=== PATIENT | female | born 1960 | race Caucasian/White ===

== ENCOUNTER 2024-03-15 09:12 | Outpatient (CLI) | payer BC, SELFPAY ==
--- NOTE | ~2024-03-15 | NM_ITS ---
EXAMINATION: NM joel stress w perfusion DATE: 03/15/2024 12:24 INDICATION: Metabolic syndrome and insulin resistance TECHNIQUE: Rest images were obtained following intravenous administration of 9.8 mCi Tc99m tetrofosmi n (Myoview). The patient was infused intravenously with Lexiscan (Regadenoson). Then, 81.2 mCi Tc99m tetrofosmin (Myoview) was administered intravenously, and stress images were obtained initially in th e supine position with repeat post stress imaging obtained in the prone position. Data was reconstruc nasreen into short axis and horizontal and vertical long axis SPECT images. Gated SPECT images were also obtained. COMPARISON: None. FINDINGS: Nonreversible mild perfusion defect consistent with infarct involving the apical anterior, mid anterior and basilar anterior segments. No nonreversible perfusion defects to suggest ischemia. T here is normal left ventricular chamber size, wall motion and ejection fraction. Left ventricular ej ection fraction measures >70%. IMPRESSION: 1. Nonreversible mild perfusion defect consistent with left anterior descending coronary artery vascu lar distribution infarct involving the apical anterior, mid anterior and basilar anterior segments. 2. Left ventricular ejection fraction measuring >70%. Reviewed, dictated and finalized at location B. TS BETTING MANAGER IMPRESSION: 1. Nonreversible mild perfusion defect consistent with left anterior descending coronary artery vascular distribution infarct involving the apical anterior, m id anterior and basilar anterior segments. 2. Left ventricular ejection fraction measuring >70%.
--- NOTE | 2024-03-15 10:24 | EST_ITS ---
Patient Info Name: Jordan Muñoz Age: 64 years : 1960 Gender: Female Ht: 64 in Wt: 205 lbs BSA: 2.09 m2 HR: 53 bpm BP: 115 / 63 mmHg Exam Date: 03/15/2024 10:41 AM Exam Location: Echo Lab Patient Status: Outpatient Admit Date: 03/15/2024 Staff Ordering Physician: Param Mcclellan MD Attending Provider: Param Mcclellan MD Exercise Technologist: Arlet Florez [facility] Exercise Physician: Guido Garrett DO Exam Type: CA stress joel w NM Study Info A regadenoson stress test was performed. Summary 1. 1. Negative lexiscan stress test for ischemic ST changes by ECG criteria. 2. 2. Stable hemodynamics throughout the test. 3. 3. Nuclear scan to follow and will be reported separately. Please correlate with it. 4. 4. Patient informed of the above results. Protocol: Lexiscan Stress ECG Details Stage: REST Duration (min): 4 min : 38 sec HR (bpm): 56 SBP (mmHg): 115 DBP (mmHg): 63 Stage: REST Duration (min): 16 min : 41 sec HR (bpm): 58 SBP (mmHg): 115 DBP (mmHg): 63 Stage: STAGE 1 Duration (min): 0 min : 59 sec HR (bpm): 67 SBP (mmHg): 124 DBP (mmHg): 80 Stage: RECOVERY Duration (min): 1 min : 0 sec HR (bpm): 74 SBP (mmHg): 124 DBP (mmHg): 80 Stage: RECOVERY Duration (min): 2 min : 0 sec HR (bpm): 71 SBP (mmHg): 124 DBP (mmHg): 80 Stage: RECOVERY Duration (min): 3 min : 0 sec HR (bpm): 66 SBP (mmHg): 133 DBP (mmHg): 76 Stage: RECOVERY Duration (min): 3 min : 14 sec HR (bpm): 68 SBP (mmHg): 133 DBP (mmHg): 76 Rest HR: 58 bpm Peak HR: 76 bpm Rest Sys BP: 115 mmHg Peak Sys BP: 133 mmHg Max Pred HR: 157 bpm % Max Pred HR: 48 % Target HR: 133 bpm Max RPP: 10,108 bpm*mmHg Termination Reason: Completed protocol Cardiac Symptoms: Shortness of breath, Baseline chest pain Total Time: 1 min : 0 sec Rest Aguilera BP: 63 mmHg Peak Aguilera BP: 76 mmHg Total Dose: 0.4 mg Resting ECG Sinus rhythm. Stress ECG No ST changes. Arrhythmias None. Report Signatures
== END 2024-03-15 09:13 | disposition home or self-care (01) ==
PROVIDERS: PCP Family Medicine; Visit Provider Family Medicine
DX: R94.39 Abnormal result of other cardiovascular function study (principal); E88.810 Metabolic syndrome; E88.819 Insulin resistance, unspecified; R07.89 Other chest pain
CPT/HCPCS: 78452; 93017; A9502; J2785

== ENCOUNTER 2024-07-28 08:58 | Outpatient (CLI) | payer BC, SELFPAY ==
--- NOTE | ~2024-07-28 | MM_ITS ---
EXAMINATION: MM screening katelyn BI w lizette HISTORY: Screening TECHNIQUE: Craniocaudal and mediolateral oblique 3-D tomosynthesis images were obtained and synthetic 2-D images were generated. CAD analysis was submitted and interpreted. COMPARISON: No prior mammogram is available for comparison at this institution. BREAST PARENCHYMAL COMPOSITION: Not dense: There are scattered areas of fibroglandular density. FINDINGS: There are asymmetries in the periareolar location of the right breast. There are no suspici ous masses, calcifications or architectural distortion in the left breast. IMPRESSION: 1. Right breast asymmetries. 2. Additional mammographic views and possible breast ultrasound are recommended. BI-RADS Category 0: Incomplete: Needs additional imaging evaluation. Reviewed, dictated and finalized at location A. IMPRESSION: 1. Right breast asymmetries. 2. Additional mammographic views and possible breast ultrasound are recommended . BI-RADS Category 0: Incomplete: Needs additional imaging evaluation.
--- OUTSIDE RECORDS SUMMARY | 2024-07-28 09:07 | XMS_ITS | Referral Summary ---
Author Organization [facility] Address [facility] [place] [address] Care Team Providers Care Driver Service Technician Name Role Phone Param Mcclellan MD Primary Care Provider [phone] [phone] Allergies No known active allergies Medications levothyroxine sodium (TIROSINT) 125 mcg capsuleIndicati ons:hypothyroid ism Take 125 mcg by mouth daily before breakfast. Active atenolol (TENORMIN) 25 mg tabletIndicatio ns:hypertension Take 25 mg by mouth daily before breakfast. Active celecoxib (CeleBREX) 200 mg capsuleIndicati ons:Osteoarthri tis,Postoperati ve Acute Pain TAKE 2 PILLS WITH BREAKFAST THE DAY BEFORE SX. TAKE 1 PILL BID AFTER DISCHARGE. 10 capsule 8 Active calcium carbonate (CALCIUM 600) 1,500 mg (600 mg of elemental calcium) tabletIndicatio ns:Hypocalcemia Prevention,Oste oporosis Take 1 tablet (1,500 mg total) by mouth daily. 30 tablet 3 9 Active ergocalciferol (VITAMIN D) 50,000 unit capsuleIndicati ons:Vitamin D Deficiency Take 1 capsule (50,000 Units total) by mouth once a week. TAKE 1 CAPSULE ONCE A WEEK FOR 12 WEEKS, THEN FOLLOW UP WITH YOUR PCP. 12 capsule 9 Active HYDROcodone-nayana taminophen (NORCO) 5-325 mg per tabletIndicatio ns:Pain Take 1-2 tablets by mouth every 4 (four) hours as needed for pain. 70 tablet 9 Active aspirin 325 mg tabletIndicatio ns:prevention of thrombosis Take 1 tablet (325 mg total) by mouth 2 (two) times a day. 84 tablet 9 Active senna-docusate (PERICOLACE) 8.6-50 mgIndications:c onstipation Take 2 tablets by mouth 2 (two) times a day. 80 tablet 2 9 Active HYDROcodone-nayana taminophen (NORCO) 5-325 mg per tabletIndicatio ns:Pain Take 1-2 tablets by mouth every 4 (four) hours as needed for pain. 70 tablet 9 Active cyclobenzaprine (FLEXERIL) 10 mg tablet Take 1 tablet (10 mg total) by mouth every 8 (eight) hours as needed for muscle spasms. 20 tablet 9 Active traMADol (ULTRAM) 50 mg tablet Take 1 tablet (50 mg total) by mouth every 6 (six) hours as needed for pain for up to 40 doses. 40 tablet 9 Active famotidine (PEPCID) 20 mg tablet Take 1 tablet (20 mg total) by mouth 2 (two) times a day 14 tablet 4 02/24/20 25 Active Active Problems Problem Noted Date Diagnosed Date HTN (hypertension) 05/17/2018 Hypothyroidism 05/17/2018 Risk factors for obstructive sleep apnea 019 Vitamin D deficiency 05/17/2018 Primary osteoarthritis of right hip 03/21/2018 Overview (03/21/2018): Added automatically from request for surgery [id number] Dense breast 04/17/2015 Hyperlipidemia 09/08/2010 Overview (08/05/2017): Description: Hyperlipidemia Social History Tobacco Use Types Packs/Day Years Used Date Smoking Tobacco: Never Smokeless Tobacco: Never Alcohol Use Standard Drinks/Week Comments No 0 (1 standard drink = 0.6 oz pur e alcohol) Personal Safety Answer Date Recorded Have you ever been in or are you currently in a harmful physical or emotional relationship or is someone making you feel afraid or unsafe? Denies 02/24/2024 Comments No Sex and Gender Information Value Date Recorded Sex Assigned at Not on file Legal Sex Female 1:13 AM ESCALATOR ATTENDANT Gender Identity Not on file Sexual Orientation Not on file Last Filed Vital Signs Vital Sign Reading Time Taken Comments Blood Pressure 145/71 02/24/2024 8:30 AM CDT Pulse 57 02/24/2024 8:30 AM CDT Temperature 36.4 C (97.6 F) 02/24/2024 4:20 AM CDT Respiratory Rate 18 02/24/2024 8:30 AM CDT Oxygen Saturation 96% 02/24/2024 8:30 AM CDT Inhaled Oxygen Concentration - - Weight 95.3 kg (210 lb) 02/24/2024 4:22 AM CDT Height 165.1 cm (5' 5 ) 05/24/2018 10:45 AM ESCALATOR ATTENDANT Body Mass Index 34.95 05/24/2018 10:45 AM ESCALATOR ATTENDANT Plan of Treatment Not on file Medical Devices Implanted Type Area Cold Roll Catcher Device Identifier Shelf Expiration Date Model / Serial / Lot [employer] [id number] Procotyl Prime 50mm Shell Acetabular Sterile - S0 - [id number] Implanted:Qty: 1 on 05/24/2018 by Jose Antonio Smith MD at [facility] Right: Hip [employer] 05/06/2026 [id number] / 0 / [id number] Prime A Class Liner Xlpe Implanted:Qty: 1 on 05/24/2018 by Jose Antonio Smith MD at [facility] Right: Hip [employer] 04/11/2026 [id number] / 0 / [id number] Description:NOT FOUND IN CAT ALOG SEARCH [employer] [id number] Dynasty Lineage 6.5mm 30mm Acetabular Screw Bone Biofoam - S0 - [id number] Implanted:Qty: 1 on 05/24/2018 by Jose Antonio Smith MD at [facility] Right: Hip [employer] 09/25/2025 [id number] / 0 / [id number] [employer] [id number] Dynasty Lineage 6.5mm 40mm Acetabular Screw Bone Biofoam - S0 - [id number] Implanted:Qty: 1 on 05/24/2018 by Jose Antonio Smith MD at [facility] Right: Hip [employer] 06/23/2022 [id number] / 0 / [id number] [employer] [id number] Profemur Tl Classic Short Varus Neck Hip 8d 3 Stem Femoral - S0 - [id number] Implanted:Qty: 1 on 05/24/2018 by Jose Antonio Smith MD at [facility] Right: Hip [employer] 02/11/2025 [id number] / 0 / [id number] Description:NOT FOUND IN CAT ALOG SEARCH [employer] [id number] Procotyl 36mm 12/14 Large Head Femoral Biolox Delta Sterile - S0 - [id number] Implanted:Qty: 1 on 05/24/2018 by Jose Antonio Smith MD at [facility] Right: Hip [employer] 12/18/2025 [id number] / 0 / [id number] Insurance Aircrm ACCESS CHOICE Aircrm ACCESS CHOICE ANTHEM ACCESS CHOICE Advance Directives For more information, please contact: [phone] * Full Code (Latest Code Status on File) Date Activated Date Inactivated Comments 05/24/2018 5:10 PM 05/25/2018 3:08 PM Care Teams Driver Service Technician Relationship Specialty Start Date End Date Param Mcclellan MD PCP - General Family Medicine 11/23/17
--- OUTSIDE RECORDS SUMMARY | 2024-07-28 09:07 | XMS_ITS | Encounter Summary ---
Author Organization [facility] Healthcare Address [address] [place] [address] Care Team Providers Care Salesperson Jewelry Name Role Phone Param Mcclellan MD Primary Care Provider [phone] Encounter Details Date Type Department Care Team (Late st Contact Info) Description 05/25/[address] [facility] Case Management [id number] [place] [address] Pauline Fritz RN Social History Tobacco Use Types Packs/Day Years Used Date Smoking Tobacco: Never Smokeless Tobacco: Never Alcohol Use Standard Drinks/Week Comments No 0 (1 standard drink = 0.6 oz pur e alcohol) Comments No Sex and Gender Information Value Date Recorded Sex Assigned at Not on file Legal Sex Female 1:13 AM FERMENTATION SCIENTIST Gender Identity Not on file Sexual Orientation Not on file documented as of this encounter Plan of Treatment Not on file documented as of this encounter Visit Diagnoses Not on filedocumented in this encounter Care Teams Salesperson Jewelry Relationship Specialty Start Date End Date Param Mcclellan MD PCP - General Family Medicine 11/23/17 documented as of this encounter
--- OUTSIDE RECORDS SUMMARY | 2024-07-28 09:07 | XMS_ITS | Encounter Summary ---
Author Organization [facility] Address [address] [place] [address] Care Team Providers Care Repairer Finished Metal Name Role Phone Param Mcclellan MD Primary Care Provider [phone]- [phone] Encounter Details Date Type Department Care Team (Latest Contact Info) Description 12/27/2007 Outpatient Historical [facility] Angus Melgar MD [address] [address] Unspecified Hypothyroidism Social History Tobacco Use Types Packs/Day Years Used Date Smoking Tobacco: Never Assessed Comments Unknown Sex and Gender Information Value Date Recorded Sex Assigned at Not on file Legal Sex Female 5:29 AM FINANCING ANALYST Gender Identity Not on file Sexual Orientation Not on file documented as of this encounter Plan of Treatment Not on file documented as of this encounter Procedures Procedure Name Priority Date/Time Associated Diagnosis Comments T3 FREE Routine 12/27/2007 2:40 PM CDT TSH Routine 12/27/2007 2:40 PM CDT T4 FREE Routine 12/27/2007 2:40 PM CDT documented in this encounter Results * T3 FREE (12/27/2007 2:40 PM CDT) T3 FREE 3.0 2.5 - 4.4 pg/mL [facility] Blood specimen (specimen) 12/27/2007 2:40 PM CDT 12/27/2007 3:03 PM CDT us Amberly Christina MD CHEMISTRY ORDERABLES Fi nal Result Performing Organization Address [facility] Phone Number INTERFACE SYSTEM Refer to clinic/hospital department [facility] CLIA# [id number] [address] [place] [address] * TSH (12/27/2007 2:40 PM CDT) TSH 2.07 0.27 - 4.20 uU/mL [facility] Blood specimen (specimen) 12/27/2007 2:40 PM CDT 12/27/2007 3:03 PM CDT us Amberly Christina MD CHEMISTRY ORDERABLES Fi nal Result Performing Organization Address [facility] Phone Number INTERFACE SYSTEM Refer to clinic/hospital department [facility] CLIA# [id number] [address] [place] [address] * T4 FREE (12/27/2007 2:40 PM CDT) T4 FREE 1.2 0.9 - 1.7 ng/dL [facility] Blood specimen (specimen) 12/27/2007 2:40 PM CDT 12/27/2007 3:03 PM CDT us Amberly Christina MD CHEMISTRY ORDERABLES Fi nal Result Performing Organization Address [facility] Phone Number INTERFACE SYSTEM Refer to clinic/hospital department [facility] CLIA# [id number] [address] [place] [address] documented in this encounter Visit Diagnoses Diagnosis Unspecified hypothyroidism documented in this encounter Care Teams Repairer Finished Metal Relationship Specialty Start Date End Date Param Mcclellan MD PCP - General Family Practice 03/10/12 documented as of this encounter
--- OUTSIDE RECORDS SUMMARY | 2024-07-28 09:07 | XMS_ITS | Clinical Summary ---
Author Organization [facility] Address [address] [place] [address] Phone Care Team Providers Care Retail Property Manager Name Role Phone Param Mcclellan MD Primary Care Provider [phone]- [phone] Allergies No known active allergies Medications ATENOLOL ORAL Take 1 Tab by mouth daily. Active LEVOTHYROXINE SODIUM (LEVOTHYROXINE ORAL) Take by mouth. Activ e PRAVASTATIN SODIUM (PRAVASTATIN ORAL) Take 1 Tab by mouth. Every other day Active ESOMEPRAZOLE MAGNESIUM (NEXIUM ORAL) Take 1 Tab by mouth daily. Active MULTIVITAMINS WITH FLUORIDE (MULTI-VITAMIN ORAL) Take by mouth. Activ e Naproxen-Esome prazole Mag (VIMOVO) 500-20 mg Tab,IR & Delay Rel,Multiphasi c Take by mouth. Activ e clobetasol (TEMOVATE) 0.05 % Ointment Apply to affected area see administration instructions. apply to perineum per lichen sclerosis protocol 30 Gram 1 4 Active Active Problems Problem Noted Date Diagnosed Date Dense breast 04/17/2015 Family History Medical History Relation Name Comments Cancer Father Bone, Prostate Breast Cancer Maternal Grandmother Heart Attack Mother Healthy Son 1 Healthy Son 2 Relation Name Status Comments Father Maternal Grandmother Mother Son 1 Alive Son 2 Alive Social History Tobacco Use Types Packs/Day Years Used Date Smoking Tobacco: Never Smokeless Tobacco: Never Alcohol Use Standard Drinks/Week Comments Yes 0 (1 standard drink = 0.6 oz pur e alcohol) Occ holidays Comments No Sex and Gender Information Value Date Recorded Sex Assigned at Not on file Legal Sex Female 5:29 AM OB/GYN Gender Identity Not on file Sexual Orientation Not on file Occupation Industry Job Start Date Job End Date Not on file Not on file Not on file Not on file Last Filed Vital Signs Vital Sign Reading Time Taken Comments Blood Pressure 118/74 04/02/2014 11:27 AM OB/GYN Pulse - - Temperature - - Respiratory Rate - - Oxygen Saturation - - Inhaled Oxygen Concentration - - Weight 95.3 kg (210 lb) 04/02/2014 11:27 AM OB/GYN Height 162.6 cm (5' 4 ) 04/02/2014 11:27 AM OB/GYN Body Mass Index 36.05 04/02/2014 11:27 AM OB/GYN Plan of Treatment Health Maintenance Due Date Last Done Comments DTAP/TDAP/TD VACCINES (1 - Tdap) 1980 COLORECTAL SCREENING 2006 FIT-DNA Q 3 years 2006 Flex Sig/CT Colonography Q 5 years 2006 ZOSTER VACCINE (1 of 2) 2011 Colorectal Cancer Screening 03/11/2013 FIT/FOBT Q 1 year 03/11/2013 03/11/2012 CERVICAL CANCER SCREENING 04/02/2015 PAP SMEAR 04/02/2015 04/02/2014, 03/10/2012 PAP SMEAR 04/02/2015 04/02/2014, 03/10/2012 BREAST CANCER SCREENING 04/16/2016 04/16/20 15, 02/07/2014, 07/15/2012, Additional history exists HPV/Cotest (21-29) 04/02/2019 04/02/2014 HPV/Cotest (30-65) 04/02/2019 04/02/2014 INFLUENZA VACCINE (#1) 2023 RSV VACCINE (60+ or ) (1 - 1-dose 75+ series) 2036 PNEUMOCOCCAL VACCINE 0-49 YEARS Aged Out No longer eligible based on patient's age to complete this topic Procedures Procedure Name Priority Date/Time Associated Diagnosis Comments MAMMO SCREEN BILAT W OR WO CAD Routine 04/16/2015 CERV/VAG CYTO SCREEN PAP RLFX HPV Routine 04/02/2014 4:10 PM OB/GYN Routine gynecological examination Screening for malignant neoplasm of the cervix POC OCCULT BLOOD 1 CARD Routine 03/11/2012 8:45 AM OB/GYN Screening for malignant neoplasm of the rectum from Last 3 Months or Most Recently Relevant to Health Maintenance Results * MAMMO DIGITAL SCREEN BILAT (04/16/2015) Anatomical Region Laterality Modality Breast Bilateral Other Erica Jiménez MD MAMMO ORDERABLES Edited Resu lt - Final * CERV/VAG CYTOPATH, THIN PREP IMAGR RFLX HPV (CP) (04/02/2014 4:10 PM OB/GYN) PAP INTERP Negative for intraepithelial lesion or malignancy. [facility] [employer] Comment: Performed by [facility], [email or web address] [address] [employer] Pap Comment This Pap test has been evaluated with computer assisted technology. [facility] [employer] ADEQUACY: Satisfactory for evaluation. Endocervical/trans formation zone component present. [facility] CLINICAL INFORMATION Information not provided [facility] SOURCE Endoc[employer]ix [facility] PREV PAP: INFORMATION NOT PROVIDED [facility] [employer] CYTOTECHNOLOGI ST: MVB, CT(ASCP) [facility] SERVICES [facility] MENSTRUAL PERIOD INFORMATION NOT PROVIDED [facility] PREV BX: INFORMATION NOT PROVIDED [facility] Endocervical 04/02/2014 4:10 PM OB/GYN 04/02/2014 10:00 PM OB/GYN Comment:ENDOCERVICAL Narrative [facility] - 04/08/2014 4:01 PM OB/GYN ecc Erica Jiménez MD PATHOLOGY/CYTOLOGY ORDERABLE S Final Result [facility] [employer] CLIA# [id number] [facility] [place] [address] * POC OCCULT BLOOD 1 CARD (03/11/2012 8:45 AM OB/GYN) OCCULT BLOOD #1 Negative Negative [facility] Stool specimen (specimen) Erica Jiménez MD POINT OF CARE TESTING Final Result [facility] from Last 3 Months or Most Recently Relevant to Health Maintenance Insurance BCBS BLUE ACCESS/TRUE BLUE PPO Care Teams Retail Property Manager Relationship Specialty Start Date End Date Param Mcclellan MD PCP - General Family Practice 03/10/12
--- OUTSIDE RECORDS SUMMARY | 2024-07-28 09:07 | XMS_ITS | Clinical Summary ---
Author Organization [facility] Address [address] [place] [address] Care Team Providers Care Bus Aide Name Role Phone Param Mcclellan MD Primary Care Provider +1- [phone] Family History Medical History Relation Comments Breast Cancer Maternal Grandmother Relation Status Comments Maternal Grandmother Social History Tobacco Use Types Packs/Day Years Used Date Smoking Tobacco: Never Assessed Comments Unknown Sex and Gender Information Value Date Recorded Sex Assigned at Not on file Legal Sex Female 4:16 PM CDT Gender Identity Not on file Sexual Orientation Not on file Last Filed Vital Signs Vital Sign Reading Time Taken Comments Blood Pressure 130/84 02/27/2013 4:42 PM LEATHER CUTTER Pulse 68 06/01/2012 1:16 PM LEATHER CUTTER Temperature - - Respiratory Rate - - Oxygen Saturation - - Inhaled Oxygen Concentration - - Weight 89.8 kg (198 lb) 02/27/2013 4:42 PM LEATHER CUTTER Height 163.8 cm (5' 4.5 ) 02/27/2013 4:42 PM LEATHER CUTTER Body Mass Index 33.46 02/27/2013 4:42 PM LEATHER CUTTER Plan of Treatment Health Maintenance Due Date Last Done Comments Cervical Cancer Screening Pap Smear (Age 30 to 64) Every 3 Years 1961 Colorectal Cancer Screening Colonoscopy (10 Years) 1961 Annual Physical 1964 Hepatitis C 1979 DTaP, Tdap and Td Vaccines (1 - Tdap) 1980 Cervical Cancer Screening Pap with HPV Testing (Age 30 to 64) Every 5 Years 1991 Cervical Cancer Screening with HPV 1991 Zoster Vaccines (1 of 2) 2011 COVID-19 Vaccine (3 - 2024-25 season) 2023 08/06/2020, 07/09/2020 Influenza Adult (#1) 2024 Mammogram Screening 2024 2022, 01/24/2021, 04/14/2019, Additional history exists RSV Immunization or 60+ Years (1 - 1-dose 75+ series) 2036 Meningococcal B Vaccine Aged Out No l onger eligible based on patient's age to complete this topic Meningococcal Vaccine Aged Out No cheri giancarlo eligible based on patient's age to complete this topic Pneumococcal Vaccine: Pediatrics (0 to 5 Years) and At-Risk Patients (6 to 64 Years) Aged Out No longer eligible based on patient's age to complete this topic RSV Immunizations Under 20 Months Aged Out No longer eligible based on patient's age to complete this topic Procedures Procedure Name Priority Date/Time Associated Diagnosis Comments MG SCREENING W TEODORO MATEO DIGI Routine 2022 11:31 AM LEATHER CUTTER Encounter for screening mammogram for malignant neoplasm of breast from Last 3 Months or Most Recently Relevant to Health Maintenance Results * MG SCREENING W TEODORO MATEO DIGI (2022 11:31 AM LEATHER CUTTER) Anatomical Region Laterality Modality Breast Bilateral Mammography 2022 12:0 9 PM LEATHER CUTTER Narrative 2022 12:10 PM LEATHER CUTTER Examination: Screening bilateral mammogram Exam Date/Time: 2022 11:11 AM Clinical history: No current complaints Comparison: 01/24/2021 Technique: Digital screening mammography of both breasts was performed. Breast tomosynthesis acquisitions were obtained and reviewed. This study was read with the assistance of a computer-aided detection system. Tissue density: There are scattered areas of fibroglandular density. Findings: No suspicious masses, malignant appearing calcifications, skin thickening or other abnormalities are present. No significant change from the prior exam. IMPRESSION: No suspicious mammographic findings. Recommendation: 1. Routine Screening, Bilateral Assessment: ACR BI-RADS 2 - BENIGN FINDING(S) Ordered By: PARAM MCCLELLAN Interpreted By: Federico Hinojosa, 2022 12:09 PM us Param Mcclellan MD MAMMO Final Resu lt from Last 3 Months or Most Recently Relevant to Health Maintenance Insurance [facility] Care Teams Bus Aide Relationship Specialty Start Date End Date Param Mcclellan MD PCP - General FAMILY PRACTICE 04/08/18
--- OUTSIDE RECORDS SUMMARY | 2024-07-28 09:07 | XMS_ITS | Clinical Summary ---
Author Organization [facility] Address [facility] [place] [address] Care Team Providers Care Blackener Name Role Phone Param Mcclellan MD Primary Care Provider +1 -[phone] Allergies No known active allergies Medications levothyroxine [...] (03/21/2018): Added automatically from request for surgery [id number] Dense breast 04/17/2015 Hyperlipidemia 09/08/2010 Overview (08/05/2017): Description: Hyperlipidemia Surgical History Surgery Date Site/Laterality Comments ROTATOR CUFF REPAIR 02/23/2017 Medical History Medical History Date Comments Hypertension Osteoarthritis Elevated C-reactive protein (CRP) History of elevated CRP Hypothyroidism Hyperlipidemia GERD (gastroesophageal reflux disease) Family History Medical History Relation Name Comments Diabetes Brother 1 Heart disease Brother 1 Hypertension Brother 1 Heart disease Brother 2 Cancer Father Diabetes Maternal Grandfather Heart disease Maternal Grandfather Hypertension Maternal Grandfather Breast cancer Maternal Grandmother Diabetes Mother Heart disease Mother Hypertension Mother Anesthesia problems Neg Hx Relation Name Status Comments Brother 1 Brother 2 Father Maternal Grandfather Maternal Grandmother Mother Social History Tobacco Use Types Packs/Day Years [...] on file Legal Sex Female 1:13 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 Gender Identity Not on file Sexual Orientation Not on file Obstetrics History Last Filed Vital Signs Vital Sign Reading [...] cm (5' 5 ) 05/24/2018 10:45 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 Body Mass Index 34.95 05/24/2018 10:45 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 Plan of Treatment Health Maintenance Due Date Last Done Comments Cervical Cancer Screening 1961 Colon Cancer Screening-Colonoscopy 1961 Depression Screening 1961 Hepatitis C Screening 1961 DTaP/Tdap/Td Vaccine (1 - Tdap) 1972 Hepatitis B Screening 1979 Regular Well Visit/Exam 18-64 1979 Zoster Vaccine (1 of 2) 2011 Breast Cancer Screening-Mammogram 2023 2022, 2022, 01/24/2021, Additional history exists Covid-19 Vaccine ( season) 2023 03/30/2021, 08/06/2020, 07/09/2020 Influenza Vaccine (#1) 2023 Pneumococcal vaccine <65 Aged Out No longer eligible based on patient's age to complete this topic Medical Devices Implanted Type Area Raking Machine Operator Device Identifier Shelf Expiration Date Model / Serial / Lot [employer] [id number] Procotyl Prime 50mm Shell Acetabular Sterile - S0 - [id number] Implanted:Qty: 1 on 05/24/2018 by Jose Antonio Smith MD at [facility] Right: Hip [employer] 05/06/2026 [id number] / 0 / [id number] Prime A Class Liner Xlpe Implanted:Qty: 1 on 05/24/2018 by Jose Antonio Smith MD at [facility] Right: Hip [employer] 04/11/2026 [id number] / 0 / [id number] Description:NOT FOUND IN CAT ALOG SEARCH [employer] [id number] Dynasty Lineage 6.5mm 30mm Acetabular Screw Bone Biofoam - S0 - [id number] Implanted:Qty: 1 on 05/24/2018 by Jose Antonio Smith MD at [facility] Right: Hip [employer] 09/25/2025 [id number] / 0 / [id number] [employer] [id number] Dynasty Lineage 6.5mm 40mm Acetabular Screw Bone Biofoam - S0 - [id number] Implanted:Qty: 1 on 05/24/2018 by Jose Antonio Smith MD at [facility] Right: Hip [employer] 06/23/2022 [id number] / 0 / [id number] [employer] [id number] Profemur Tl Classic Short Varus Neck Hip 8d 3 Stem Femoral - S0 - [id number] Implanted:Qty: 1 on 05/24/2018 by Jose Antonio Smith MD at [facility] Right: Hip [employer] 02/11/2025 [id number] / 0 / [id number] Description:NOT FOUND IN CAT ALOG SEARCH [employer] [id number] Procotyl 36mm 12/14 Large Head Femoral Biolox Delta Sterile - S0 - [id number] Implanted:Qty: 1 on 05/24/2018 by Jose Antonio Smith MD at [facility] Right: Hip [employer] 12/18/2025 [id number] / [id number] / [id number] Insurance ANTHEM ACCESS CHOICE ANTHEM ACCESS CHOICE ANTHEM ACCESS CHOICE Advance Directives For more information, please contact: [phone] * Full Code (Latest Code Status on File) Date Activated Date Inactivated Comments 05/24/2018 5:10 PM 05/25/2018 3:08 PM Care Teams Blackener Relationship Specialty Start Date End Date Param Mcclellan MD PCP - General Family Medicine 11/23/17
--- OUTSIDE RECORDS SUMMARY | 2024-07-28 09:07 | XMS_ITS | Encounter Summary ---
Author Organization [facility] Address [address] [place] [address] Care Team Providers Care Cloth Layer Name Role Phone Param Mcclellan MD Primary Care Provider +1- [phone] Encounter Details Date Type Department Care Team (Latest Contact Info) Description 04/28/2007 Outpatient Historical HIS [facility] Angus Melgar MD [address] [address] Unspecified Hypothyroidism Social History Tobacco Use Types Packs/Day Years Used Date Smoking Tobacco: Never Assessed Comments Unknown Sex and Gender Information Value Date Recorded Sex Assigned at Not on file Legal Sex Female 5:29 AM ROPEWALK ROPE MAKER Gender Identity Not on file Sexual Orientation Not on file documented as of this encounter Plan of Treatment Not on file documented as of this encounter Procedures Procedure Name Priority Date/Time Associated Diagnosis Comments THYROID PEROXIDASE ANTIBODY Routine 04/28/2007 10:01 AM ROPEWALK ROPE MAKER T3 FREE Routine 04/28/2007 10:01 AM ROPEWALK ROPE MAKER TSH Routine 04/28/2007 10:01 AM ROPEWALK ROPE MAKER T4 FREE Routine 04/28/2007 10:01 AM ROPEWALK ROPE MAKER documented in this encounter Results * (ABNORMAL) THYROID PEROXIDASE ANTIBODY (04/28/2007 10:01 AM ROPEWALK ROPE MAKER) THYROID PEROXIDASE AB 117(H) <35 IU/mL INTERFACE SYSTEM Comment: Lab test performed by: [employer] [place] [address] [id number] ALEIDA SANCHEZ MD 04/28/2007 10:0 1 AM ROPEWALK ROPE MAKER us Angus Christina MD CHEMISTRY ORDERABLES Edited Performing Organization Address City/[facility] Co de Phone Number INTERFACE SYSTEM Refer to clinic/hospital department * TSH (04/28/2007 10:01 AM ROPEWALK ROPE MAKER) TSH 2.15 0.27 - 4.20 uU/mL INTERFACE SYSTEM 04/28/2007 10:0 1 AM ROPEWALK ROPE MAKER us Angus Christina MD CHEMISTRY ORDERABLES Edited Performing Organization Address City/[facility] Co de Phone Number INTERFACE SYSTEM Refer to clinic/hospital department * T4 FREE (04/28/2007 10:01 AM ROPEWALK ROPE MAKER) T4 FREE 1.2 0.9 - 1.7 ng/dL INTERFACE SYSTEM 04/28/2007 10:0 1 AM ROPEWALK ROPE MAKER us Angus Christina MD CHEMISTRY ORDERABLES Edited Performing Organization Address [facility] Co de Phone Number INTERFACE SYSTEM Refer to clinic/hospital department * T3 FREE (04/28/2007 10:01 AM ROPEWALK ROPE MAKER) T3 FREE 3.2 2.5 - 4.4 pg/mL INTERFACE SYSTEM 04/28/2007 10:0 1 AM ROPEWALK ROPE MAKER us Angus Christina MD CHEMISTRY ORDERABLES Edited Performing Organization Address [facility] Co de Phone Number INTERFACE SYSTEM Refer to clinic/hospital department documented in this encounter Visit Diagnoses Diagnosis Unspecified hypothyroidism documented in this encounter Care Teams Cloth Layer Relationship Specialty Start Date End Date Param Mcclellan MD PCP - General Family Practice 03/10/12 documented as of this encounter
== END 2024-07-28 08:59 | disposition home or self-care (01) ==
LOC: ANHIMG 09:01
PROVIDERS: PCP Family Medicine; Visit Provider Family Medicine
DX: Z12.31 Encounter for screening mammogram for malignant neoplasm of breast (principal); R92.8 Other abnormal and inconclusive findings on diagnostic imaging of breast
CPT/HCPCS: 77063; 77067

== ENCOUNTER 2024-08-09 10:47 | Outpatient (CLI) | payer BC, SELFPAY ==
--- NOTE | ~2024-08-09 | MMUS_ITS ---
EXAMINATION: MM diagnostic katelyn RT w lizette, US breast RT complete HISTORY: Follow-up right breast asymmetry TECHNIQUE: Additional 3-D tomosynthesis images of the right breast were performed and synthetic 2-D i mages were generated. CAD analysis was submitted and interpreted. High resolution complete right candice st ultrasound was performed. COMPARISON: Comparison to multiple prior studies sequentially, with oldest reviewed study dated 04/2020. BREAST PARENCHYMAL COMPOSITION: Not dense: There are scattered areas of fibroglandular density. FINDINGS: MAMMOGRAPHIC FINDINGS: Asymmetries in the right breast are less dense with spot compression views, likely superimposed fibro glandular tissue. There are no suspicious masses, calcifications or architectural distortion to sugge st malignancy. ULTRASOUND: Complete US of all 4 quadrants of the right breast/s and retroareolar region was reviewed. Normal het erogeneous echotexture without focal solid or cystic mass. IMPRESSION: 1. No evidence for malignancy in the right breast. 2. Routine yearly screening mammogram and regular clinical breast examination are recommended. BI-RADS Category 1: Negative Reviewed, dictated and finalized at location B. IMPRESSION: 1. No evidence for malignancy in the right breast. 2. Routine yearly screening mammogram and regular clinical breast examination a re recommended. BI-RADS Category 1: Negative
--- OUTSIDE RECORDS SUMMARY | 2024-08-09 12:08 | XMS_ITS | Encounter Summary ---
Author Organization [facility] Healthcare Address [address] [place] [address] Care Team Providers Care Engineering Recruiter Name Role Phone Param Mcclellan MD Primary Care Provider +1 -[phone] Encounter Details Date Type Department Care Team (Late st Contact Info) Description 05/25/2018 Documentation [facility] [id number] [place] [address] Pauline Fritz RN Social History Tobacco Use Types Packs/Day Years Used Date Smoking Tobacco: Never Smokeless Tobacco: Never Alcohol Use Standard Drinks/Week Comments No 0 (1 standard drink = 0.6 oz pur e alcohol) Comments No Sex and Gender Information Value Date Recorded Sex Assigned at Not on file 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
--- OUTSIDE RECORDS SUMMARY | 2024-08-09 12:08 | XMS_ITS | Encounter Summary ---
Author Organization [facility] Address [address] [place] [address] Care Team Providers Care Decorating Machine Tender Name Role Phone Param Mcclellan MD Primary Care Provider +1- [phone] Encounter Details Date Type Department Care Team (Latest Contact Info) Description 04/28/2007 Outpatient Historical HIS [facility] Angus Melgar MD [address] [address] Unspecified Hypothyroidism Social History Tobacco Use Types Packs/Day Years Used Date Smoking Tobacco: Never Assessed Comments Unknown Sex and Gender Information Value Date Recorded Sex Assigned at Not on file Legal Sex Female 5:29 AM VP DESIGN Gender Identity Not on file Sexual Orientation Not on file documented as of this encounter Plan of Treatment Not on file documented as of this encounter Procedures Procedure Name Priority Date/Time Associated Diagnosis Comments THYROID PEROXIDASE ANTIBODY Routine 04/28/2007 10:01 AM VP DESIGN T3 FREE Routine 04/28/2007 10:01 AM VP DESIGN TSH Routine 04/28/2007 10:01 AM VP DESIGN T4 FREE Routine 04/28/2007 10:01 AM VP DESIGN documented in this encounter Results * (ABNORMAL) THYROID PEROXIDASE ANTIBODY (04/28/2007 10:01 AM VP DESIGN) THYROID PEROXIDASE AB 117(H) <35 IU/mL INTERFACE SYSTEM Comment: Lab test performed by: [employer] [place] [address] [id number] ALEIDA SANCHEZ MD 04/28/2007 10:0 1 AM VP DESIGN us Angus Christina MD CHEMISTRY ORDERABLES Edited Performing Organization Address City/[facility] Co de Phone Number INTERFACE SYSTEM Refer to clinic/hospital department * TSH (04/28/2007 10:01 AM VP DESIGN) TSH 2.15 0.27 - 4.20 uU/mL INTERFACE SYSTEM 04/28/2007 10:0 1 AM VP DESIGN us Angus Christina MD CHEMISTRY ORDERABLES Edited Performing Organization Address City/[facility] Co de Phone Number INTERFACE SYSTEM Refer to clinic/hospital department * T4 FREE (04/28/2007 10:01 AM VP DESIGN) T4 FREE 1.2 0.9 - 1.7 ng/dL INTERFACE SYSTEM 04/28/2007 10:0 1 AM VP DESIGN us Angus Christina MD CHEMISTRY ORDERABLES Edited Performing Organization Address [facility] Co de Phone Number INTERFACE SYSTEM Refer to clinic/hospital department * T3 FREE (04/28/2007 10:01 AM VP DESIGN) T3 FREE 3.2 2.5 - 4.4 pg/mL INTERFACE SYSTEM 04/28/2007 10:0 1 AM VP DESIGN us Angus Christina MD CHEMISTRY ORDERABLES Edited Performing Organization Address City/[facility] Co de Phone Number INTERFACE SYSTEM Refer to clinic/hospital department documented in this encounter Visit Diagnoses Diagnosis Unspecified hypothyroidism documented in this encounter Care Teams Decorating Machine Tender Relationship Specialty Start Date End Date Param Mcclellan MD PCP - General Family Practice 03/10/12 documented as of this encounter
--- OUTSIDE RECORDS SUMMARY | 2024-08-09 12:08 | XMS_ITS | Encounter Summary ---
Author Organization [facility] Address 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 Gender Identity Not on file Sexual Orientation [...] T3 FREE 3.0 2.5 - 4.4 pg/mL [facility] Blood specimen (specimen) 12/27/2007 2:40 PM CDT 12/27/2007 3:03 PM CDT us Amberly Christina MD CHEMISTRY ORDERABLES Fi nal Result Performing Organization Address [facility] Phone Number INTERFACE SYSTEM Refer to clinic/hospital department [facility] CLIA# [id number] [address] [place] [address] * TSH (12/27/2007 2:40 PM CDT) TSH 2.07 0.27 - 4.20 uU/mL [facility] Blood specimen (specimen) 12/27/2007 2:40 PM CDT 12/27/2007 3:03 PM CDT us Amberly Christina MD CHEMISTRY ORDERABLES Fi nal Result Performing Organization Address [facility] Phone Number INTERFACE SYSTEM Refer to clinic/hospital department [facility] CLIA# [id number] [address] [place] [address] * T4 FREE (12/27/2007 2:40 PM CDT) T4 FREE 1.2 0.9 - 1.7 ng/dL [facility] Blood specimen (specimen) 12/27/2007 2:40 PM CDT 12/27/2007 3:03 PM CDT us Amberly Christina MD CHEMISTRY ORDERABLES Fi nal Result Performing Organization Address [facility] Phone Number INTERFACE SYSTEM Refer to clinic/hospital department [facility] CLIA# [id number] [address] [place] [address] documented in this encounter Visit Diagnoses Diagnosis Unspecified hypothyroidism documented in this encounter Care Teams Haulage Engine Operator Relationship Specialty Start Date End Date Param Mcclellan MD PCP - General Family Practice 03/10/12 documented as of this encounter
--- OUTSIDE RECORDS SUMMARY | 2024-08-09 12:08 | XMS_ITS | Clinical Summary ---
Author Organization [facility] Address [address] [place] [address] Care Team Providers Care Cream Separator Operator Name Role Phone Param Mcclellan MD Primary Care Provider +1- [phone] Family History Medical History Relation Comments Breast [...] Comments Blood Pressure 130/84 02/27/2013 4:42 PM WEIGHT ENGINEER Pulse 68 06/01/2012 1:16 PM WEIGHT ENGINEER Temperature - - Respiratory Rate - - Oxygen Saturation - - Inhaled Oxygen Concentration - - Weight 89.8 kg (198 lb) 02/27/2013 4:42 PM WEIGHT ENGINEER Height 163.8 cm (5' 4.5 ) 02/27/2013 4:42 PM WEIGHT ENGINEER Body Mass Index 33.46 02/27/2013 4:42 PM WEIGHT ENGINEER Plan of Treatment Health Maintenance Due Date [...] (3 - 2024-25 season) 2023 08/06/2020, 07/09/2020 Mammogram Screening 2024 2022, 01/24/2021, 04/14/2019, Additional [...] 5 Years) and At-Risk Patients (6 to 49 Years) Aged Out No longer eligible based on patient's age to complete this topic RSV Immunizations Under 20 Months Aged Out No longer eligible based on patient's age to complete this topic Procedures Procedure Name Priority Date/Time Associated Diagnosis Comments MG SCREENING W TEODORO MATEO DIGI Routine 2022 11:31 AM WEIGHT ENGINEER Encounter for screening mammogram for malignant neoplasm of breast from Last 3 Months or Most Recently Relevant to Health Maintenance Results * MG SCREENING W TEODORO MATEO DIGI (2022 11:31 AM WEIGHT ENGINEER) Anatomical Region Laterality Modality Breast Bilateral Mammography 2022 12:0 9 PM WEIGHT ENGINEER Narrative 2022 12:10 PM WEIGHT ENGINEER Examination: Screening bilateral mammogram Exam Date/Time: 2022 [...] Interpreted By: Federico Hinojosa, 2022 12:09 PM Param Mcclellan MD MAMMO Final Resu lt from Last 3 Months or Most Recently Relevant to Health Maintenance Insurance [facility] Care Teams Cream Separator Operator Relationship Specialty Start Date End Date Param Mcclellan MD PCP - General FAMILY PRACTICE 04/08/18
--- OUTSIDE RECORDS SUMMARY | 2024-08-09 12:08 | XMS_ITS | Clinical Summary ---
Author Organization [facility] Address [address] [place] [address] Phone Care Team Providers Care Bundle Breaker Name Role Phone Param Mcclellan MD Primary Care Provider +1- [phone] Allergies No known active allergies Medications ATENOLOL [...] on file Legal Sex Female 5:29 AM UNIVERSITY DEAN Gender Identity Not on file Sexual Orientation Not on file Occupation Industry Job Start Date Job End Date Not on file Not on file Not on file Not on file Last Filed Vital Signs Vital Sign Reading Time Taken Comments Blood Pressure 118/74 04/02/2014 11:27 AM UNIVERSITY DEAN Pulse - - Temperature - - Respiratory Rate - - Oxygen Saturation - - Inhaled Oxygen Concentration - - Weight 95.3 kg (210 lb) 04/02/2014 11:27 AM UNIVERSITY DEAN Height 162.6 cm (5' 4 ) 04/02/2014 11:27 AM UNIVERSITY DEAN Body Mass Index 36.05 04/02/2014 11:27 AM UNIVERSITY DEAN Plan of Treatment Health Maintenance Due Date [...] PAP RLFX HPV Routine 04/02/2014 4:10 PM UNIVERSITY DEAN Routine gynecological examination Screening for malignant neoplasm of the cervix POC OCCULT BLOOD 1 CARD Routine 03/11/2012 8:45 AM UNIVERSITY DEAN Screening for malignant neoplasm of the rectum from Last 3 Months or Most Recently Relevant to Health Maintenance Results * MAMMO DIGITAL SCREEN BILAT (04/16/2015) Anatomical Region Laterality Modality Breast Bilateral Other Erica Jiménez MD MAMMO ORDERABLES Edited Resu lt - Final * CERV/VAG CYTOPATH, THIN PREP IMAGR RFLX HPV (CP) (04/02/2014 4:10 PM UNIVERSITY DEAN) PAP INTERP Negative for intraepithelial lesion or malignancy. [facility] [employer] [facility] Comment: Performed by [employer], [employer] [place] [address] Environmental Services Technician Pap Comment This Pap test has been evaluated with computer assisted technology. [facility] [employer] [facility] ADEQUACY: Satisfactory for evaluation. Endocervical/trans formation zone component present. [facility] CLINICAL INFORMATION Information not provided [facility] SOURCE Endocervix [facility]OR[facility] PREV PAP: INFORMATION NOT PROVIDED [facility] [employer] [facility] CYTOTECHNOLOGI ST: MVB, CT(ASCP) [facility] LABORATORY SERVICES [facility] LAST MENSTRUAL PERIOD INFORMATION NOT PROVIDED [facility] LABOR[facility] PREV BX: INFORMATION NOT PROVIDED [facility] Endocervical 04/02/2014 4:10 PM UNIVERSITY DEAN 04/02/2014 10:00 PM UNIVERSITY DEAN Comment:ENDOCERVICAL Narrative [facility] - 04/08/2014 4:01 PM UNIVERSITY DEAN ecc Erica Jiménez MD PATHOLOGY/CYTOLOGY ORDERABLE S Final Result [facility] [employer] [facility] CLIA# [id number] [facility] [place] [address] * POC OCCULT BLOOD 1 CARD (03/11/2012 8:45 AM UNIVERSITY DEAN) OCCULT BLOOD #1 Negative Negative [facility] Stool specimen (specimen) Erica Jiménez MD POINT OF CARE TESTING Final Result [facility] from Last 3 Months or Most Recently Relevant to Health Maintenance Insurance BC[employer] BLUE ACCESS/TRUE BLUE PPO Care Teams Bundle Breaker Relationship Specialty Start Date End Date Param Mcclellan MD PCP - General Family Practice 03/10/12
--- OUTSIDE RECORDS SUMMARY | 2024-08-09 12:08 | XMS_ITS | Clinical Summary ---
Author Organization [facility] Address [facility] [place] [address] Care Team Providers Care Laboratory Director Name Role Phone Param Mcclellan MD Primary Care Provider [phone] Allergies No known active allergies Medications levothyroxine [...] (03/21/2018): Added automatically from request for surgery [id number] Dense breast 04/17/2015 Hyperlipidemia 09/08/2010 Overview (08/05/2017): [...] on file Legal Sex Female 1:13 AM SLOTS MANAGER Gender Identity Not on file Sexual Orientation [...] cm (5' 5 ) 05/24/2018 10:45 AM SLOTS MANAGER Body Mass Index 34.95 05/24/2018 10:45 AM SLOTS MANAGER Plan of Treatment Health Maintenance Due Date [...] this topic Medical Devices Implanted Type Area Sheet Metal Installer Device Identifier Shelf Expiration Date Model / Serial / Lot [employer] [id number] Procotyl Prime 50mm Shell Acetabular Sterile - S0 - [id number] Implanted:Qty: 1 on 05/24/2018 by Jose Antonio Smith MD at [facility] Right: Hip [employer] 05/06/2026 [id number] / 0 / [id number] Prime A Class Liner Xlpe Implanted:Qty: 1 on 05/24/2018 by Jose Antonio Smith MD at [facility] Right: Hip [employer] 04/11/2026 [id number] / 0 / [id number] Description:NOT FOUND IN CAT ALOG SEARCH [employer] [id number] Dynasty Lineage 6.5mm 30mm Acetabular Screw Bone Biofoam - S0 - [id number] Implanted:Qty: 1 on 05/24/2018 by Jose Antonio Smith MD at [facility] Right: Hip [employer] 09/25/2025 [id number] / 0 / [id number] [employer] [id number] Dynasty Lineage 6.5mm 40mm Acetabular Screw Bone Biofoam - S0 - [id number] Implanted:Qty: 1 on 05/24/2018 by Jose Antonio Smith MD at [facility] Right: Hip [employer] 06/23/2022 [id number] / 0 / [id number] [employer] [id number] Profemur Tl Classic Short Varus Neck Hip 8d 3 Stem Femoral - S0 - [id number] Implanted:Qty: 1 on 05/24/2018 by Jose Antonio Smith MD at [facility] Right: Hip [employer] 02/11/2025 [id number] / 0 / [id number] Description:NOT FOUND IN CAT ALOG SEARCH [employer] [id number] Procotyl 36mm 12/14 Large Head Femoral Biolox Delta Sterile - S0 - [id number] Implanted:Qty: 1 on 05/24/2018 by Jose Antonio Smith MD at [facility] Right: Hip [employer] 12/18/2025 [id number] / 0 / [id number] Insurance ANTHEM ACCESS CHOICE ANTHEM ACCESS CHOICE ANTHEM ACCESS CHOICE Advance Directives For more information, please contact: [phone] * Full Code (Latest Code Status on File) Date Activated Date Inactivated Comments 05/24/2018 5:10 PM 05/25/2018 3:08 PM Care Teams Laboratory Director Relationship Specialty Start Date End Date Param Mcclellan MD PCP - General Family Medicine 11/23/17
--- OUTSIDE RECORDS SUMMARY | 2024-08-09 12:08 | XMS_ITS | Referral Summary ---
Author Organization 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 Gender Identity Not on file Sexual Orientation [...] cm (5' 5 ) 05/24/2018 10:45 AM PASSPORT SUPPORT ASSOCIATE Body Mass Index 34.95 05/24/2018 10:45 AM PASSPORT SUPPORT ASSOCIATE Plan of Treatment Not on file Medical Devices Implanted Type Area 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 Device Identifier Shelf Expiration Date Model / Serial / Lot [employer] [id number] Procotyl Prime 50mm Shell Acetabular Sterile - S0 - [id number] Implanted:Qty: 1 on 05/24/2018 by Jose Antonio Smith MD at [facility] Right: Hip [employer] 05/06/2026 [id number] / 0 / [id number] Prime A Class Liner Xlpe Implanted:Qty: 1 on 05/24/2018 by Jose Antonio Smith MD at [facility] Right: Hip [employer] 04/11/2026 [id number] / 0 / [id number] Description:NOT FOUND IN CAT ALOG SEARCH [employer] [id number] Dynasty Lineage 6.5mm 30mm Acetabular Screw Bone Biofoam - S0 - [id number] Implanted:Qty: 1 on 05/24/2018 by Jose Antonio Smith MD at [facility] Right: Hip [employer] 09/25/2025 [id number] / 0 / [id number] [employer] [id number] Dynasty Lineage 6.5mm 40mm Acetabular Screw Bone Biofoam - S0 - [id number] Implanted:Qty: 1 on 05/24/2018 by Jose Antonio Smith MD at [facility] Right: Hip [employer] 06/23/2022 [id number] / 0 / [id number] [employer] [id number] Profemur Tl Classic Short Varus Neck Hip 8d 3 Stem Femoral - S0 - [id number] Implanted:Qty: 1 on 05/24/2018 by Jose Antonio Smith MD at [facility] Right: Hip [employer] 02/11/2025 [id number] / 0 / [id number] Description:NOT FOUND IN CAT ALOG SEARCH [employer] [id number] Procotyl 36mm 12/14 Large Head Femoral Biolox Delta Sterile - S0 - [id number] Implanted:Qty: 1 on 05/24/2018 by Jose Antonio Smith MD at [facility] Right: Hip [employer] 12/18/2025 [id number] / 0 / [id number] Insurance [employer] ACCESS CHOICE [employer] ACCESS CHOICE ANTHEM ACCESS CHOICE Advance Directives For more information, please contact: [phone] * Full Code (Latest Code Status on File) Date Activated Date Inactivated Comments 05/24/2018 5:10 PM 05/25/2018 3:08 PM Care Teams Investment Banker Relationship Specialty Start Date End Date Param Mcclellan MD PCP - General Family Medicine 11/23/17
== END 2024-08-09 10:48 | disposition home or self-care (01) ==
LOC: ANHIMG 10:50
PROVIDERS: PCP Family Medicine; Visit Provider Family Medicine
DX: R92.8 Other abnormal and inconclusive findings on diagnostic imaging of breast (principal)
CPT/HCPCS: 76641; 77061; 77065; G0279